=== PATIENT | female | born 1995 | race Caucasian/White ===

== ENCOUNTER 2020-12-24 16:38 | Inpatient (IN) | payer OTHER ==
[~2020-12-24] VITALS: Ht 172.7 cm; Wt 70.4 kg
[2020-12-24 18:51] LABS: BASOPHILS ABSOLUTE AUTO 0.07 K/mm3 (0.00-0.23); BASOPHILS PERCENT AUTO 1 % (0-2); EOSINOPHILS ABSOLUTE AUTO 0.01 K/mm3 (0.00-0.68); EOSINOPHILS PERCENT AUTO 0 % (0-6); Hematocrit 38.8 % (33.0-51.0); Hemoglobin 13.1 g/dL (11.5-16.0); IMMATURE GRAN ABSOLUTE AUTO 0.05 K/mm3 (0.00-0.10); IMMATURE GRAN PERCENT AUTO 0 % (0-1); LYMPHOCYTES PERCENT AUTO 10 % (21-46); MONOCYTES PERCENT AUTO 6 % (4-13); Mean Corpuscular HGB 31.6 pg (26.0-34.0); Mean Corpuscular HGB Conc 33.8 g/dL (31.5-36.5); Mean Corpuscular Volume 94 fL (80-100); Mean Platelet Volume 9.5 fL (9.1-12.4); NEUTROPHILS ABSOLUTE AUTO 9.84 K/mm3 (1.96-9.15); NEUTROPHILS PERCENT AUTO 83 % (41-73); Platelet Count 309 K/mm3 (150-400); RDW Coefficient Variation 12.5 % (11.7-14.2); Red Blood Cell Count 4.15 M/mm3 (3.80-5.20); White Blood Cell Count 11.87 K/mm3 (4.00-11.30)
[2020-12-24 19:06] LABS: Alanine Aminotransfer (ALT/SGP 18 U/L (12-78); Albumin, Blood 3.8 g/dL (3.4-5.0); Albumin/Globulin Ratio 1.1 (0.8-1.8); Alk Phos 61 U/L (50-136); Anion Gap 5 mmol/L (6-16); Aspartate Aminotrans (AST/SGOT 20 U/L (12-37); Bilirubin, Total 0.9 mg/dL (0.1-1.0); Blood Urea Nitrogen 11 mg/dL (8-24); Bun/Creatinine Ratio 14.9 (12.0-20.0); CO2, Blood 25 mmol/L (21-32); Calcium, Blood 8.4 mg/dL (8.5-10.1); Chloride, Blood 110 mmol/L (98-108); Creatinine, Blood 0.74 mg/dL (0.40-1.00); Globulin, Blood 3.4 g/dL (2.2-4.0); Glomerular Filtration Rate >60 (60-); Glucose, Blood 90 mg/dL (70-99); Potassium, Blood 3.7 mmol/L (3.5-5.5); Sodium, Blood 140 mmol/L (136-145); Total Protein, Blood 7.2 g/dL (6.4-8.2)
[2020-12-24] MEDS ORDERED: ALBU90OI INH (21:10)
[2020-12-24 21:31] LABS: SARS-Cov-2 (COVID-19) PCR, MMC POSITIVE (NEGATIVE)
--- NOTE | 2020-12-24 23:01 | NUR ---
PT ARRIVED TO FLOOR FROM ER. PT A/O, SPLINT IN PLACE TO LLE, PT WIGGLES TOES, CAP REFILL WNL, PT VERY PAINFUL/ANXIOUS W/MVMT. PT ORIENTED TO ROOM/CALL LIGHT. DR CARRINGTON IN TO SEE PT, SURGERY PLANS DISCUSSED. PLAN FOR PT TO TAKE PT TO SURGERY 12/25. PT OK FOR CLEAR LIQ UNTIL 10:00 AM 12/25.
--- NOTE | 2020-12-24 23:06 | NUR ---
COVID: COVID SWAB COLLECTED IN ER. THIS RN NOTIFIED BY LAB OF PT POSITIVE COVID TEST. NURSING ASSEMBLY ADJUSTER AND DR CARRINGTON NOTIFIED. PER DR CARRINGTON, ISOLATION PRECAUTIONS NOT REQUIRED PT TESTED COVID+ 10/2020.
--- NOTE | 2020-12-25 06:16 | NUR ---
PT VSS T/O NIGHT. RLE ELEVATED IN BED, CAP REFILL WNL, PT CONT TO REP NUMBNESS, DENIED CHANGES IN SENSATION. SPLINT INTACT. PAIN MGD PER EMAR W/REP RELIEF. PT ASSISTED W/BEDPAN TO VOID. PT CL POST MIDNIGHT UNTIL 10:00 THIS AM FOR PENDING SURGERY THIS AFTERNOON.
--- NOTE | 2020-12-25 08:35 | NUR ---
PT TO IMAGING
--- NOTE | 2020-12-25 11:06 | NUR ---
dr aparicio in to see pt.
--- NOTE | 2020-12-25 11:30 | NUR ---
PT TO PRE OP
--- NOTE | 2020-12-25 11:59 | NUR ---
PT TO SDS FROM ROOM 219. REPORTS NPO SINCE MIDNIGHT. History, Chart, Medications and Allergies reviewed before start of procedure. Lungs clear T/O to Auscultation. NEGATIVE TEST PER LABS. CONTACTS REMOVED.
--- NOTE | 2020-12-25 16:45 | NUR ---
MEDICATED PT PER ORDERS FOR 10/29 LLE. PROVIDED SHAMPOO CAPS/PT HAS DEBRIS FROM FALL IN HAIR.
--- NOTE | 2020-12-25 18:18 | NUR ---
SUMMARY NO ACUTE CHANGES SINCE ARRIVING BACK TO UNIT FROM PACU. MEDICATED PER ORDERS FOR PAIN AND NAUSEA. PT UP TO BSC W/KNIFE GLAZER ASSISTANCE. CALL LIGHT IN REACH.
--- NOTE | 2020-12-26 05:47 | NUR ---
POD 1 S/P LEFT TIBIA RODDING. PT VSS T/O NIGHT; DRESSING CDI. SWELLING MINIMAL, CAP REFILL WNL, PT REP NUMBNESS RESOLVING. PAIN MGD W/2 PERCOCET W/REP RELIEF. PT UP TO BSC W/FWW+1 ASSIST, [place] TRANSFER WELL. PT REP INC PAIN WHEN ATTEMPTING TO BEAR WT ON LLE. PT [place] REG PO, NO N/V, IS VOIDING W/O DIFFICULTY. PT REP MAY NOT BE ABLE TO ARRANGE TRANSPORTATION HOME UNTIL THURSDAY.
[2020-12-26 08:29] LABS: BASOPHILS ABSOLUTE AUTO 0.03 K/mm3 (0.00-0.23); BASOPHILS PERCENT AUTO 0 % (0-2); EOSINOPHILS ABSOLUTE AUTO 0.01 K/mm3 (0.00-0.68); EOSINOPHILS PERCENT AUTO 0 % (0-6); Hematocrit 32.9 % (33.0-51.0); Hemoglobin 11.2 g/dL (11.5-16.0); IMMATURE GRAN ABSOLUTE AUTO 0.07 K/mm3 (0.00-0.10); IMMATURE GRAN PERCENT AUTO 1 % (0-1); LYMPHOCYTES ABSOLUTE AUTO 0.91 K/mm3 (0.84-5.20); LYMPHOCYTES PERCENT AUTO 7 % (21-46); MONOCYTES ABSOLUTE AUTO 0.94 K/mm3 (0.16-1.47); MONOCYTES PERCENT AUTO 8 % (4-13); Mean Corpuscular HGB 32.2 pg (26.0-34.0); Mean Corpuscular Volume 95 fL (80-100); Mean Platelet Volume 9.7 fL (9.1-12.4); NEUTROPHILS ABSOLUTE AUTO 10.56 K/mm3 (1.96-9.15); NEUTROPHILS PERCENT AUTO 84 % (41-73); Platelet Count 268 K/mm3 (150-400); RDW Coefficient Variation 12.2 % (11.7-14.2); RDW Standard Deviation 42.2 fL (35.1-46.3); Red Blood Cell Count 3.48 M/mm3 (3.80-5.20); White Blood Cell Count 12.52 K/mm3 (4.00-11.30)
--- NOTE | 2020-12-26 12:01 | NUR ---
PT SITTING UP IN BED. WORKED W/THERAPY. CALL LIGHT IN REACH.
--- NOTE | 2020-12-26 14:32 | NUR ---
OT IN TO WORK W/PATIENT.
--- NOTE | 2020-12-26 18:02 | NUR ---
SUMMARY NO ACUTE CHANGES T/O SHIFT. PATIENT WORKED W/PT AND OT. MEDICATED PER ORDERS T/O SHIFT FOR PAIN. RESTED THIS AFTERNOON. USES CALL LIGHT APPROPRIATELY.
--- NOTE | 2020-12-27 06:34 | NUR ---
A/OX4. VSS ON RA. PAIN MANAGED WELL W/ ORAL PAIN MEDS. UP TO TOILET W FWW. SLEEPING B/W CARE. USING CALL LIGHT TO MAKE NEEDS KNOWN.
[2020-12-27] MEDS ORDERED: Percocet 5-3251 EACH PO (11:24)
[2020-12-27] MEDS ORDERED: Aspir 8181 MG PO (11:25)
--- NOTE | 2020-12-27 11:54 | NUR ---
12/27/20 1154 Kelsy Aquino VERIFICATIONS: EDIT CHART.
--- NOTE | 2020-12-27 15:03 | NUR ---
DISCHARGE SUMMARY PT A&OX4, VSS, VOIDING WELL, PAIN MANAGED, [place] PO, AMB W/FWW; LEFT FLOOR VIA WC WITH ALL PERSONAL POSSESSIONS INCLUDING DRESSING SUPPLIES, DC PACKET, AND SCRIPTS, TO GO HOME WITH FRIEND. DC INSTRUCTIONS PROVIDED, PT REP UNDERSTANDING THOSE INSTRUCTIONS INCLUDING HOW TO CHANGE DRESSING (WE REVIEWED HOW/IN WHAT ORDER TO USE SUPPLIES), KEEP DRESSING/LLE DRY, AMB WITH FWW, KEEP ICED AND ELEVATED AT REST, FU APPT 2 WKS WITH SURGEON. IV DC'D.
== END 2020-12-27 14:56 | disposition home or self-care (01) | DRG 492 ==
LOC: ER 16:38 → SURS 16:39
PROVIDERS: Physician Assistant; ADMIT Orthopaedic Surgery
PROC: 8E0ZXY6 Isolation (ICD-10-PCS; 2020-12-24)
PROC: 0QSH36Z Reposition Left Tibia with Intramedullary Internal Fixation Device, Percutaneous Approach (ICD-10-PCS; principal; 2020-12-25 12:00)
DX: S82.252A Displaced comminuted fracture of shaft of left tibia, initial encounter for closed fracture (principal); U07.1 COVID-19; S82.832A Other fracture of upper and lower end of left fibula, initial encounter for closed fracture; Y93.31 Activity, mountain climbing, rock climbing and wall climbing; W01.0XXA Fall on same level from slipping, tripping and stumbling without subsequent striking against object, initial encounter
CPT/HCPCS: 29515; 36415; 73590; 73700; 76377; 80053; 84703; 85025; 96374-59; 96375-59; 96376-59; 97110; 97116; 97162; 97165; 97535; 99285-25; A9270; C1713; C1769; G0378; J0171; J0690; J1100; J1170; J1885; J2250; J2270; J2405; J2704; J3010; J7120; U0004

== ENCOUNTER 2021-01-01 10:25 | Inpatient (IN) | payer OTHER ==
[~2021-01-01] VITALS: Ht 170.2 cm; Wt 70.0 kg
[~2021-01-01 10:25] MED LIST: ALBU90OI INH; Aspir 8181 MG PO; Percocet 5-3251 EACH PO
[2021-01-01 11:44] LABS: Alanine Aminotransfer (ALT/SGP 60 U/L (12-78); Albumin, Blood 3.9 g/dL (3.4-5.0); Albumin/Globulin Ratio 0.8 (0.8-1.8); Alk Phos 72 U/L (50-136); Anion Gap 8 mmol/L (6-16); Aspartate Aminotrans (AST/SGOT 39 U/L (12-37); BASOPHILS ABSOLUTE AUTO 0.08 K/mm3 (0.00-0.23); BASOPHILS PERCENT AUTO 1 % (0-2); Bilirubin, Total 1.1 mg/dL (0.1-1.0); Blood Urea Nitrogen 15 mg/dL (8-24); Bun/Creatinine Ratio 20.4 (12.0-20.0); CO2, Blood 25 mmol/L (21-32); Calcium, Blood 9.5 mg/dL (8.5-10.1); Chloride, Blood 103 mmol/L (98-108); Creatinine, Blood 0.74 mg/dL (0.40-1.00); EOSINOPHILS ABSOLUTE AUTO 0.13 K/mm3 (0.00-0.68); EOSINOPHILS PERCENT AUTO 1 % (0-6); Globulin, Blood 4.7 g/dL (2.2-4.0); Glomerular Filtration Rate >60 (60-); Glucose, Blood 81 mg/dL (70-99); Hematocrit 39.4 % (33.0-51.0); Hemoglobin 13.6 g/dL (11.5-16.0); IMMATURE GRAN ABSOLUTE AUTO 0.11 K/mm3 (0.00-0.10); IMMATURE GRAN PERCENT AUTO 1 % (0-1); LYMPHOCYTES ABSOLUTE AUTO 1.35 K/mm3 (0.84-5.20); LYMPHOCYTES PERCENT AUTO 10 % (21-46); MONOCYTES ABSOLUTE AUTO 1.15 K/mm3 (0.16-1.47); MONOCYTES PERCENT AUTO 8 % (4-13); Mean Corpuscular HGB 32.2 pg (26.0-34.0); Mean Corpuscular HGB Conc 34.5 g/dL (31.5-36.5); Mean Corpuscular Volume 93 fL (80-100); Mean Platelet Volume 9.7 fL (9.1-12.4); NEUTROPHILS ABSOLUTE AUTO 11.43 K/mm3 (1.96-9.15); NEUTROPHILS PERCENT AUTO 80 % (41-73); Platelet Count 386 K/mm3 (150-400); Potassium, Blood 3.6 mmol/L (3.5-5.5); RDW Coefficient Variation 13.1 % (11.7-14.2); RDW Standard Deviation 44.5 fL (35.1-46.3); Red Blood Cell Count 4.23 M/mm3 (3.80-5.20); Sodium, Blood 136 mmol/L (136-145); Total Protein, Blood 8.6 g/dL (6.4-8.2); White Blood Cell Count 14.25 K/mm3 (4.00-11.30)
[2021-01-01] MEDS ORDERED: XULANE PATCH1 EAC1 TD (12:43)
[2021-01-01] MEDS ORDERED: Ventolin/Prove6.7 GM INH (14:03)
--- NOTE | 2021-01-01 18:41 | NUR ---
SHIFT SUMMARY PT A&OX4, AMBULATES W/FWW INDEPENDENT TO BRP. S/P ORIF 12/25/20, DRESSING DRY/INTACT. ORAL TEMPS WNL. IVF/ABX SCHEDULED PER EMAR. [place] PO. VOIDING WELL. WILL REPORT TO ONCOMING NOC RN.
--- NOTE | 2021-01-02 03:45 | NUR ---
SHIFT SUMMARY PT AOX4. NO ACUTE CHANGES OVERNIGHT. PT REPORTS MODERATE PAIN ON LLE. PAIN MANAGED WITH 1 TAB PERCOCET Q4. AFEBRILE. VSS. LLE WITH CAST AND CHACHA WRAP, CDI. PT DENIES NUMBNESS AND TINLGING. IVF AND ABX (ZOSYN AND VANCO) ADMINSTERED. VOIDING WITHOUT DIFFICULTY/ISSUES. AMBULATING INDEPENDENTLY IN THE BATHROOM. MAY NEED ASSISTANCE WITH LINES/CORDS. USES CALL LIGHT APPROPRIATELY. TOLERATING PO INTAKE. DENIES NAUSEA AND VOMITING. CALL LIGHT WITHIN REACH. WILL PROVIDE REPORT TO ONCOMING NURSE.
[2021-01-02 04:29] LABS: BASOPHILS ABSOLUTE AUTO 0.08 K/mm3 (0.00-0.23); BASOPHILS PERCENT AUTO 1 % (0-2); EOSINOPHILS PERCENT AUTO 2 % (0-6); Hematocrit 31.5 % (33.0-51.0); Hemoglobin 10.3 g/dL (11.5-16.0); IMMATURE GRAN PERCENT AUTO 1 % (0-1); LYMPHOCYTES ABSOLUTE AUTO 1.13 K/mm3 (0.84-5.20); LYMPHOCYTES PERCENT AUTO 13 % (21-46); MONOCYTES ABSOLUTE AUTO 0.71 K/mm3 (0.16-1.47); MONOCYTES PERCENT AUTO 8 % (4-13); Mean Corpuscular HGB Conc 32.7 g/dL (31.5-36.5); Mean Platelet Volume 9.4 fL (9.1-12.4); NEUTROPHILS ABSOLUTE AUTO 6.44 K/mm3 (1.96-9.15); NEUTROPHILS PERCENT AUTO 74 % (41-73); Platelet Count 287 K/mm3 (150-400); RDW Standard Deviation 46.9 fL (35.1-46.3); Red Blood Cell Count 3.22 M/mm3 (3.80-5.20); White Blood Cell Count 8.66 K/mm3 (4.00-11.30)
[2021-01-02 04:34] LABS: Mean Corpuscular Volume 98 fL (80-100)
[2021-01-02 04:51] LABS: Anion Gap 4 mmol/L (6-16); Blood Urea Nitrogen 14 mg/dL (8-24); Bun/Creatinine Ratio 20.3 (12.0-20.0); CO2, Blood 24 mmol/L (21-32); Calcium, Blood 8.2 mg/dL (8.5-10.1); Chloride, Blood 112 mmol/L (98-108); Creatinine, Blood 0.69 mg/dL (0.40-1.00); Glomerular Filtration Rate >60 (60-); Glucose, Blood 84 mg/dL (70-99); Potassium, Blood 3.8 mmol/L (3.5-5.5); Sodium, Blood 140 mmol/L (136-145)
[2021-01-02 18:03] LABS: Vancomycin, Trough 14.3 ug/mL (5.0-10.0)
--- NOTE | 2021-01-02 18:42 | NUR ---
SHIFT SUMMARY PT HAS DONE WELL TODAY. WORKED W/ PT&OT. PAIN WELL MANAGED. CIRC MARIO WNL. L LEG ELEVATED T/O DAY. HOSPITALIST & DR VILLAREAL ROUNDED.
--- NOTE | 2021-01-03 06:22 | NUR ---
PT REMAINED AFEBRILE T/O NIGHT; VSS. LLE DRESSING CDI, SPLINT INTACT. PAIN MGD PER EMAR W/REP RELIEF. PT HAD NO C/O N/V, DOES REP DIARRHEA SINCE STARTING ABX. PT UP OOB W/FWW, MAINTAINS NWB.
--- NOTE | 2021-01-03 11:47 | NUR ---
DR VILLAREAL IN TO SEE PATIENT AND COMPLETED DRESSING CHANGE TO LLE. INCISIONS WITHOUT REDNESS OR DRAINAGE, SUTURES INTACT
--- NOTE | 2021-01-03 12:07 | NUR ---
[employer] HERE TO FIT PATIENT WITH CAM BOOT
[2021-01-03] MEDS ORDERED: SULTRIDS PO (12:56)
[2021-01-03] MEDS ORDERED: VISBIOME 112.51 EACH PO (12:57)
[2021-01-03] MEDS ORDERED: Percocet 5-3251 EACH PO (12:58)
--- NOTE | 2021-01-03 13:27 | NUR ---
DISCHARGED TO HOME WITH AUNT. PRESCRIPTIONS FAXED TO [facility]. PT REPORTS PAIN IS ADEQUATELY CONTROLLED WITH PO MEDS. CAM BOOT AND DRESSIING INTACT TO LLE. DISCUSSED DRESSING CHANGES WITH PATIENT AND SHE VERBALIZES UNDERSTANDING OF. [place] PO FOOD AND FLUIDS WITHOUT NAUSEA. UP TO BR WITH WALKWER, STEADY ON FEET AND VOIDING CLEAR YELLOW URINE. PT REPORTS HAS SOME DIARRHEA SINCE STARTING ANTIBIOTICS BUT THAT IS LESSENING IN FREQUENCY
== END 2021-01-03 13:40 | disposition home or self-care (01) | DRG 863 ==
LOC: ER 10:25 → SURS 14:12
PROVIDERS: Emergency Medicine; Nurse Practitioner Acute Care; Pharmacist; ADMIT Internal Medicine
DX: T81.49XA Infection following a procedure, other surgical site, initial encounter (principal); J45.909 Unspecified asthma, uncomplicated; J45.20 Mild intermittent asthma, uncomplicated; Z86.16 Personal history of COVID-19; Z98.890 Other specified postprocedural states; Z79.82 Long term (current) use of aspirin; Z79.899 Other long term (current) drug therapy
CPT/HCPCS: 36415; 71045; 73590; 80048; 80053; 80202; 83605; 85025; 85651; 86140; 87040; 94760; 96374; 96375; 97110; 97116; 97162; 97165; 97530; 99284-25; A9270; J1885; J2270; J2405; J2543; J3370; J7030; J7040